=== PATIENT | female | born 2000 | race Caucasian/White ===

== ENCOUNTER 2025-07-28 06:42 | Emergency (ER) | payer OTHER ==
[2025-07-28] MEDS ORDERED: Naloxone 0.4 MG/ML SDV IVPUSH PRN (07:13)
[2025-07-28] MEDS: Ondansetron 4 MG/2 ML SDV IVPUSH ONE (07:16)
[2025-07-28 07:19] LABS: BASOPHILS ABSOLUTE AUTO 0.03 K/uL (0.00-0.20); BASOPHILS PERCENT AUTO 0.5 % (0.0-2.0); EOSINOPHILS ABSOLUTE AUTO 0.08 K/uL (0.00-0.50); EOSINOPHILS PERCENT AUTO 1.3 % (0.0-5.0); IMMATURE GRAN ABSOLUTE AUTO 0.01 10^3/uL (0.00-0.04); IMMATURE GRAN PERCENT AUTO 0.2 % (0.0-0.4); LYMPHOCYTES ABSOLUTE AUTO 2.74 K/uL (0.50-3.50); LYMPHOCYTES PERCENT AUTO 45.6 % (10.0-50.0); MONOCYTES ABSOLUTE AUTO 0.33 K/uL (0.00-1.00); MONOCYTES PERCENT AUTO 5.5 % (2.0-14.0); NEUTROPHILS ABSOLUTE AUTO 2.82 K/uL (1.40-7.00); NEUTROPHILS PERCENT AUTO 46.9 % (45.0-80.0); PLATELET COUNT,PLT 239 K/uL (150-350); RED BLOOD CELL COUNT 5.27 M/uL (3.77-5.09); RED CELL DISTRIBUTION WIDTH 13.0 % (11.2-14.1); WHITE BLOOD CELL COUNT,WBC 6.0 K/uL (4.0-10.2)
[2025-07-28] MEDS ORDERED: Sodium Chloride 0.9% 10 ML Syringe FLUSH PRN (07:23)
[2025-07-28] MEDS: Ondansetron 4 MG/2 ML SDV ONE (07:27)
[2025-07-28 07:31] LABS: ALANINE AMINOTRANSFERASE,ALT 34.0 U/L (12-78); ASPARTATE AMNIOTRANSFERASE,AST 20.0 U/L (15-37); BILIRUBIN TOTAL 0.5 mg/dL (0.2-1.0); BLOOD UREA NITROGEN,BUN 15.0 mg/dL (7-18); CARBON DIOXIDE,CO2 27.2 mmol/L (21.0-32.0); CHLORIDE,CL 104.0 mmol/L (98-107); CREATININE 0.95 mg/dL (0.51-1.17); EST CRCL DRUG DOSING (CG) 88.03 mL/min; GLUCOSE RANDOM 110.0 mg/dL (70-99); POTASSIUM,K 4.1 mmol/L (3.5-5.1); PROTEIN TOTAL,TP 7.9 g/dL (6.4-8.2); SODIUM,NA 141.0 mmol/L (136-145)
[2025-07-28] MEDS: Ketorolac 30 MG/ML SDV IVPUSH ONE (07:33)
[2025-07-28 07:48] LABS: ESTIMATED GFR 85.0 mL/min (>=60)
[2025-07-28 08:04] LABS: LACTIC ACID 2.5 mmol/L (0.4-2.0)
[2025-07-28] MEDS: fentaNYL 50 MCG/ML SDV IVPUSH ONE ×3 (08:12→09:47)
[2025-07-28 08:45] LABS: APPEARANCE,URINE CLEAR; GLUCOSE,URINE NEGATIVE (NEGATIVE); OCCULT BLOOD,URINE TRACE-INTACT (NEGATIVE)
== END 2025-07-28 09:52 ==
LOC: EDBD 06:42 → LL.ED 06:42
DX: R10.9 Unspecified abdominal pain (principal); R10.A1 Flank pain, right side; E86.0 Dehydration
CPT/HCPCS: 36415; 74176; 80053; 81001; 83605; 83735; 84703; 85025; 96361; 96374; 96375; 96376; 99284; 99285-25; J1171; J1885; J2405; J3010; J7030